=== PATIENT | female | born 1970 | race Caucasian/White ===

== ENCOUNTER → 2024-07-11 | Outpatient (CLI) | payer OTHER, BC, SELFPAY ==
[2024-07-11 10:35] LABS: Follicle Stimulating Hormone 7.62 mIU/mL (See Note)
[2024-07-17 06:50] LABS: Estradiol, Ultrasensitive* 146 pg/mL
[2024-07-17 06:51] LABS: Testosterone, Free,Dialysis 25.8 pg/mL (0.1-6.4); Testosterone, Total, Dialysis 236 ng/dL (2-45)
== END | disposition home or self-care (01) ==
LOC: COPL 09:15
PROVIDERS: PCP Family Medicine; Referring Provider Internal Medicine; Visit Provider Internal Medicine
DX: N95.1 Menopausal and female climacteric states (principal)
CPT/HCPCS: 36415; 82670; 83001; 84402; 84403

== ENCOUNTER → 2024-10-30 | Outpatient (CLI) | payer OTHER, BC, SELFPAY ==
[2024-10-30 08:39] LABS: Misc Send Out* See Sep Rpt
[2024-10-30 09:24] LABS: Basophils # (Auto) 0.1 Thou/mm3 (0.0-0.2); Basophils % (Auto) 1 % (0-2.5); Eosinophils # (Auto) 0.1 Thou/mm3 (0.0-0.5); Eosinophils % (Auto) 1 % (0-10); Hematocrit 39.7 % (36.0-46.0); Hemoglobin 13.7 g/dL (12.0-16.0); Immature Granulocytes % (Auto) 0 % (0-0); Immature Granulocytes Auto 0.01 Thou/mm3 (0.00-0.00); Lymphocytes # (Auto) 2.1 Thou/mm3 (1.0-4.8); Lymphocytes % (Auto) 28 % (10-50); Mean Corpuscular HGB Conc 34.5 g/dl (31.0-37.0); Mean Corpuscular Hemoglobin 29.8 pg (25.0-35.0); Mean Corpuscular Volume 86 fL (80-100); Monocytes # (Auto) 0.6 Thou/mm3 (0.0-0.8); Monocytes % (Auto) 8 % (0-12); Neutrophils # (Auto) 4.7 Thou/mm3 (1.8-7.7); Neutrophils % (Auto) 61 % (37-80); Nucleated Red Blood Cell % 0 /100 WBC (0); Platelet Count 368 Thou/mm3 (140-440); RDW Standard Deviation 43.4 fL (36.4-46.3); White Blood Count 7.6 Thou/mm3 (3.6-11.0)
[2024-10-30 09:43] LABS: Follicle Stimulating Hormone 15.92 mIU/mL (See Note); Vitamin B12 471 pg/mL (211-911); Vitamin D 25 Hydroxy Total 38.5 ng/mL (7.3-40.2)
[2024-10-30 09:47] LABS: Alanine Aminotransferase 12 U/L (10-49); Albumin, Serum 4.3 gm/dL (3.5-5.0); Albumin/Globulin Ratio 1.8 (1.2-2.2); Alkaline Phosphatase 68 U/L (46-116); Anion Gap 8 (7-16); Aspartate Amino Transferase 14 U/L (0-34); BUN/Creatinine Ratio 13 Ratio (12-20); Blood Urea Nitrogen 9 mg/dL (9-23); Calcium 9.2 mg/dL (8.3-10.6); Calcium (Corrected) 9.2 mg/dL (8.5-10.1); Carbon Dioxide 27.2 mMol/L (20.0-31.0); Cardiac Risk Estimate 3.2 RATIO (3.7-5.6); Chloride 106 mMol/L (98-107); Cholesterol 153 mg/dL (132-200); Creatinine (Component) 0.7 mg/dL (0.6-1.3); Free T4 (Free Thyroxine) 1.26 ng/dL (0.89-1.76); Globulin 2.4 gm/dL (2.3-3.5); Glucose 97 mg/dL (74-106); HDL Cholesterol 48 mg/dL (40-60); LDL Cholesterol,Calculated 71 mg/dL (0-130); Osmolality,Calculated 279 (275-295); Sodium 141 mMol/L (136-145); Thyroid Stimulating Hormone 0.41 uIU/mL (0.55-4.78); Total Protein 6.7 gm/dL (5.7-8.2); Triglycerides 170 mg/dL (30-150); eGFR > 60 See Note
== END | disposition home or self-care (01) ==
PROVIDERS: PCP Family Medicine; Referring Provider Internal Medicine Endocrinology, Diabetes & Metabolism; Visit Provider Internal Medicine Interventional Cardiology
DX: E89.0 Postprocedural hypothyroidism (principal); I25.2 Old myocardial infarction; N95.1 Menopausal and female climacteric states
CPT/HCPCS: 36415; 80053; 80061; 82306; 82607; 83001; 84439; 84443; 85025

== ENCOUNTER → 2024-11-15 | Outpatient (CLI) | payer OTHER, BC, SELFPAY ==
[2024-11-28 06:18] LABS: Estradiol, Ultrasensitive* 84 pg/mL; Testosterone,Total* 6 ng/dL (2-45)
== END | disposition home or self-care (01) ==
LOC: COPL 17:00
PROVIDERS: PCP Family Medicine; Referring Provider Internal Medicine; Visit Provider Internal Medicine
DX: N95.1 Menopausal and female climacteric states (principal); R68.82 Decreased libido; R23.2 Flushing; N95.2 Postmenopausal atrophic vaginitis
CPT/HCPCS: 36415; 82670; 84403

== ENCOUNTER → 2025-04-03 | Outpatient (CLI) | payer OTHER, BC, SELFPAY ==
[2025-04-03 17:12] LABS: Follicle Stimulating Hormone 28.78 mIU/mL (See Note)
== END | disposition home or self-care (01) ==
LOC: COPL 15:50
PROVIDERS: PCP Family Medicine; Referring Provider Internal Medicine; Visit Provider Internal Medicine
DX: N95.1 Menopausal and female climacteric states (principal); R68.82 Decreased libido; R23.2 Flushing
CPT/HCPCS: 36415; 82670; 83001; 84403